=== PATIENT | female | born 1975 | race African-American/Black ===

== ENCOUNTER 2019-02-15 04:54 | Emergency (ER) | payer SELFPAY ==
[~2019-02-15] VITALS: Ht 165.1 cm; Wt 69.9 kg
--- NOTE | 2019-02-15 05:39 | PHYS DOC ---
Past Medical History Past Medical History: Bronchitis, Hypertension (SUZANNE SHI MD) Past Surgical History: (SUZANNE SHI MD) Alcohol Use: Occasionally Drug Use: None (SUZANNE SHI MD) Adult General Chief Complaint Chief Complaint: ALTERED MENTAL STATUS HPI HPI 43-year-old female presents to the emergency department via EMS with altered mental status. Patient states she's been drinking wine denies drugs however has some cigarettes which appears to be marijuana with some sort of contaminant associated with it. She denies drug intake. Has a history of hypertension. Patient denies chest pain, SOB, nausea, vomiting, headache or visual changes. Nothing makes her symptoms worse, nothing makes her symptoms better. (SUZANNE SHI MD) Review of Systems Review of Systems Constitutional: Denies fever or chills [] Respiratory: Denies cough or shortness of breath [] Cardiovascular: No additional information not addressed in HPI [] GI: Denies abdominal pain, nausea, vomiting, bloody stools or diarrhea [] : Denies dysuria or hematuria [] Musculoskeletal: Denies back pain or joint pain [] Neurologic: Denies headache, focal weakness or sensory changes [] All other systems were reviewed and found to be within normal limits, except as documented in this note. (SUZANNE SHI MD) Current Medications Current Medications Current Medications Medications (Trade) Dose Ordered Sig/Haylie Start Time Stop Time Status Last Admin Dose Admin Hydralazine HCl (Apresoline Inj) 10 mg 1X ONCE 02/15/19 06:00 02/15/19 06:01 DC 02/15/19 06:03 10 MG (ROHIT BUTT DO) Allergies Allergies Allergies Coded Allergies Type Severity Reaction Last Updated Verified No Known Drug Allergies 10/27/13 No (ROHIT BUTT DO) Physical Exam Physical Exam Constitutional: Well developed, well nourished, no acute distress, non-toxic appearance. [] HENT: Normocephalic, atraumatic, bilateral external ears normal, oropharynx moist, no oral exudates, nose normal. [] Eyes: PERRLA, EOMI, conjunctiva normal, no discharge. [] Neck: Normal range of motion, no tenderness, supple, no stridor. [] Cardiovascular:Heart rate regular rhythm, no murmur [] Lungs & Thorax: Bilateral breath sounds clear to auscultation [] Abdomen: Bowel sounds normal, soft, no tenderness, no masses, no pulsatile masses. [] Skin: Warm, dry, no erythema, no rash. [] Back: No tenderness, no CVA tenderness. [] Extremities: No tenderness, no cyanosis, no clubbing, ROM intact, no edema. [] Neurologic: Alert and oriented X 3, normal motor function, normal sensory function, no focal deficits noted. [] Psychologic: Affect normal, judgement normal, mood normal. [] (SUZANNE SHI MD) Physical Exam Constitutional: Well developed, well nourished, no acute distress, somnolent but awakes to voice HENT: Normocephalic, atraumatic, oropharynx moist Eyes: Conjunctiva normal, no discharge, nystagmus noted Neck: Normal range of motion, no tenderness, supple Cardiovascular: Heart rate normal, regular rhythm Lungs & Thorax: Bilateral breath sounds clear to auscultation, no wheezing Skin: Warm, dry, no erythema, no rash Neurologic: Alert and oriented X 3, normal motor function, normal sensory function, no focal deficits noted Psychologic: Affect is sleepy,denies suicidal ideation (ROHIT BUTT DO) Current Patient Data Vital Signs Vital Signs Date Time Temp Pulse Resp B/P (MAP) Pulse Ox O2 Delivery O2 Flow Rate FiO2 02/15/19 08:43 82 20 95 02/15/19 06:03 211/147 02/15/19 04:55 97.8 Room Air 97.8 (ROHIT BUTT DO) Lab Values Laboratory Tests Test 02/15/19 05:25 02/15/19 05:26 02/15/19 05:34 Urine Collection Type Unknown Urine Color Yellow Urine Clarity Clear Urine pH 5.5 Urine Specific [place] <=1.005 Urine Protein 30 mg/dL (NEG-TRACE) Urine Glucose (UA) Negative mg/dL (NEG) Urine Ketones (Stick) Negative mg/dL (NEG) Urine Blood Large (NEG) Urine Nitrite Negative (NEG) Urine Bilirubin Negative (NEG) Urine Urobilinogen Dipstick 0.2 mg/dL (0.2 mg/dL) Urine Leukocyte Esterase Trace (NEG) Urine RBC Tntc /HPF (0-2) Urine WBC 1-4 /HPF (0-4) Urine Squamous Epithelial Cells Few /LPF Urine Bacteria 0 /HPF (0-FEW) Urine Opiates Screen Neg (NEG) Urine Methadone Screen Neg (NEG) Urine Barbiturates Neg (NEG) Urine Phencyclidine Screen Pos (NEG) Urine Amphetamine/Methamphetamine Neg (NEG) Urine Benzodiazepines Screen Neg (NEG) Urine Cocaine Screen Neg (NEG) Urine Cannabinoids Screen Neg (NEG) Urine Ethyl Alcohol Pos (NEG) White Blood Count 11.6 x10^3/uL (4.0-11.0) H Red Blood Count 4.45 x10^6/uL (3.50-5.40) Hemoglobin 13.0 g/dL (12.0-15.5) Hematocrit 39.1 % (36.0-47.0) Mean Corpuscular Volume 88 fL (79-100) Mean Corpuscular Hemoglobin 29 pg (25-35) Mean Corpuscular Hemoglobin Concent 33 g/dL (31-37) Red Cell Distribution Width 17.0 % (11.5-14.5) H Platelet Count 282 x10^3/uL (140-400) Neutrophils (%) (Auto) 60 % (31-73) Lymphocytes (%) (Auto) 30 % (24-48) Monocytes (%) (Auto) 7 % (0-9) Eosinophils (%) (Auto) 3 % (0-3) Basophils (%) (Auto) 1 % (0-3) Neutrophils # (Auto) 6.9 x10^3/uL (1.8-7.7) Lymphocytes # (Auto) 3.5 x10^3/uL (1.0-4.8) Monocytes # (Auto) 0.8 x10^3/uL (0.0-1.1) Eosinophils # (Auto) 0.3 x10^3/uL (0.0-0.7) Basophils # (Auto) 0.1 x10^3/uL (0.0-0.2) Sodium Level 141 mmol/L (136-145) Potassium Level 3.9 mmol/L (3.5-5.1) Chloride Level 103 mmol/L (98-107) Carbon Dioxide Level 23 mmol/L (21-32) Anion Gap 15 (6-14) H Blood Urea Nitrogen 14 mg/dL (7-20) Creatinine 1.2 mg/dL (0.6-1.0) H Estimated GFR (Cockcroft-Gault) 59.6 BUN/Creatinine Ratio 12 (6-20) Glucose Level 84 mg/dL (70-99) Calcium Level 9.0 mg/dL (8.5-10.1) Magnesium Level 1.8 mg/dL (1.8-2.4) Total Bilirubin 0.2 mg/dL (0.2-1.0) Aspartate Amino Transferase (AST) 15 U/L (15-37) Alanine Aminotransferase (ALT) 12 U/L (14-59) L Alkaline Phosphatase 61 U/L (46-116) Creatine Kinase 127 U/L (26-192) Total Protein 9.5 g/dL (6.4-8.2) H Albumin 4.1 g/dL (3.4-5.0) Albumin/Globulin Ratio 0.8 (1.0-1.7) L Salicylates Level 4.0 mg/dL (2.8-20.0) Salicylate Last Dose Date Unknown Salicylate Last Dose Time Unknown Acetaminophen Level < 2.0 mcg/ml (10-30) L Acetaminophen Last Dose Date Unknown Acetaminophen Last Dose Time Unknown POC Urine HCG, Qualitative Hcg negative (Negative) Laboratory Tests 02/15/19 05:26 Laboratory Tests 02/15/19 05:26 (ROHIT BUTT DO) Lab Values Laboratory Tests Test 02/15/19 05:34 POC Urine HCG, Qualitative Hcg negative (Negative) (SUZANNE SHI MD) EKG EKG [] (SUZANNE SHI MD) Radiology/Procedures Radiology/Procedures [] (SUZANNE SHI MD) Radiology/Procedures PROCEDURE: CT HEAD WO CONTRAST STUDY: CT head without contrast INDICATION: Altered mental status. COMPARISON: None. TECHNIQUE: Axial CT imaging through the head without the use of intravenous contrast. Sagittal and coronal reformats were obtained. One or more of the following individualized dose reduction techniques were utilized for this examination: 1. Automated exposure control 2. Adjustment of the mA and/or kV according to patient size 3. Use of iterative reconstruction technique. FINDINGS: No acute intracranial hemorrhage. Gibson-white matter differentiation is maintained. No mass effect, midline shift or hydrocephalus. Intact calvarium. Unremarkable soft tissues. IMPRESSION: No acute intracranial abnormality seen by CT. Electronically signed by: CONCHA ESCOBEDO MD (02/15/2019 6:23 AM) [facility] (ROHIT BUTT DO) Course & Med Decision Making Course & Med Decision Making Pertinent Labs and Imaging studies reviewed. (See chart for details) []43-year-old female presents to the emergency department via EMS with altered mental status. Patient states she's been drinking wine denies drugs however has some cigarettes which appears to be marijuana with some sort of contaminant associated with it. She denies drug intake. Has a history of hypertension. Patient denies chest pain, SOB, nausea, vomiting, headache or visual changes. Nothing makes her symptoms worse, nothing makes her symptoms better. Labs/Imaging pending Hydralazine 10mg IV x 1 for blood pressure control Care transitioned to DR. BUTT at 0600, discussed current findings and presentation. DR BUTT to assume care and responsible for disposition (SUZANNE SHI MD) Course & Med Decision Making 0600- Sign out received from Dr. Shi for patient with altered mental status with positive UDS for PCP and ETOH. Patient currently sleeping. Patient seen and evaluated by myself. Patient subsequently clinically sober. Patient stable for discharge with o utpatient follow-up with PCP. Discussed findings and plan with patient, who acknowledges understanding and agreement. (ROHIT BUTT DO) Dragon Disclaimer Dragon Disclaimer This electronic medical record was generated, in whole or in part, using a voice recognition dictation system. (SUZANNE SHI MD) Departure Departure Impression: Primary Impression: Altered mental status Additional Impressions: Alcohol intoxication PCP abuse Disposition: HOME, SELF-CARE Condition: STABLE Referrals: JORGE EDWARD MD (PCP) Patient Instructions: Alcohol Intoxication, [id number], Alcohol and Drug Addiction, Finding Treatment, Drug Abuse, FAQs Problem Qualifiers Primary Impression: Altered mental status Altered mental status type: unspecified Qualified Codes: R41.82 - Altered mental status, unspecified Additional Impressions: Alcohol intoxication Complication of substance-induced condition: with unspecified complication Qualified Codes: F10.929 - Alcohol use, unspecified with intoxication, unspecified SUZANNE SHI MD Feb 15, 2019 05:38 ROHIT BUTT DO Feb 15, 2019 07:27
[2019-02-15 05:54] LABS: CREATININE 1.2 mg/dL (0.6-1.0); GFR 59.6; POTASSIUM 3.9 mmol/L (3.5-5.1)
[2019-02-15 06:01] LABS: BILIRUBIN,URINE NEGATIVE (NEG); CLARITY,URINE CLEAR; COLOR,URINE YELLOW; NITRITE,URINE NEGATIVE (NEG); PH,URINE 5.5; PROTEIN,URINE 30 mg/dL (NEG-TRACE); UROBILINOGEN,URINE 0.2 mg/dL (0.2 mg/dL)
[2019-02-15 06:01] LABS: ALBUMIN 4.1 g/dL (3.4-5.0); ALBUMIN/GLOBULIN RATIO 0.8 (1.0-1.7); MAGNESIUM 1.8 mg/dL (1.8-2.4); TOTAL BILIRUBIN 0.2 mg/dL (0.2-1.0); TOTAL PROTEIN 9.5 g/dL (6.4-8.2)
[2019-02-15] MEDS: hydrALAZINE 20 MG/ML VIAL. IVP ONE (06:03)
[2019-02-15 06:09] LABS: BASO # 0.1 x10^3/uL (0.0-0.2); BASO % 1 % (0-3); EOS # 0.3 x10^3/uL (0.0-0.7); EOS % 3 % (0-3); HEMATOCRIT 39.1 % (36.0-47.0); LYMPH # 3.5 x10^3/uL (1.0-4.8); LYMPH % 30 % (24-48); MEAN CORPUSCULAR HEMOGLOBIN 29 pg (25-35); MEAN CORPUSCULAR HGB CONC 33 g/dL (31-37); MEAN CORPUSCULAR VOLUME 88 fL (79-100); MONO # 0.8 x10^3/uL (0.0-1.1); MONO % 7 % (0-9); NEUT # 6.9 x10^3/uL (1.8-7.7); NEUT % 60 % (31-73); PLATELET COUNT 282 x10^3/uL (140-400); RED BLOOD COUNT 4.45 x10^6/uL (3.50-5.40); WHITE BLOOD COUNT 11.6 x10^3/uL (4.0-11.0)
[2019-02-15 06:10] LABS: BARBITURATES NEG (NEG); BENZODIAZEPINES NEG (NEG); CANNABINOIDS NEG (NEG); COCAINE NEG (NEG); METHADONE NEG (NEG); OPIATES NEG (NEG); PHENCYCLIDINE POS (NEG)
[2019-02-15 06:16] LABS: AMPHETAMINE/METHAMPHETAMINE NEG (NEG)
[2019-02-15 06:22] LABS: ACETAMIN < 2.0 mcg/ml (10-30)
--- NOTE | 2019-02-15 06:26 | RAD ---
STUDY: CT head without contrast INDICATION: Altered mental status. COMPARISON: None. TECHNIQUE: Axial CT imaging through the head without the use of intravenous contrast. Sagittal and coronal reformats were obtained. One or more of the following individualized dose reduction techniques were utilized for this examination: 1. Automated exposure control 2. Adjustment of the mA and/or kV according to patient size 3. Use of iterative reconstruction technique. FINDINGS: No acute intracranial hemorrhage. Gibson-white matter differentiation is maintained. No mass effect, midline shift or hydrocephalus. Intact calvarium. Unremarkable soft tissues. IMPRESSION: No acute intracranial abnormality seen by CT. Electronically signed by: CONCHA ESCOBEDO MD (02/15/2019 6:23 AM) [facility]
[2019-02-15 06:36] LABS: BACTERIA,URINE 0 /HPF (0-FEW); RBC,URINE TNTC /HPF (0-2); SQUAMOUS EPITHELIAL CELL,UR FEW /LPF
[2019-02-15 08:43] VITALS: BP 127/94
== END 2019-02-15 09:00 | disposition home or self-care (01) ==
LOC: ER 04:54
DX: R41.82 Altered mental status, unspecified (principal); F10.129 Alcohol abuse with intoxication, unspecified; F12.90 Cannabis use, unspecified, uncomplicated; F16.10 Hallucinogen abuse, uncomplicated; I10 Essential (primary) hypertension; Z98.890 Other specified postprocedural states
CPT/HCPCS: 36415; 70450; 80053; 80307; 80329; 81001; 81025; 82550; 83735; 85025; 87086; 96374; 99285; J0360; G0480

== ENCOUNTER → 2019-06-22 | Emergency (ER) | payer SELFPAY ==
[~2019-06-22] VITALS: Ht 160 cm; Wt 83.0 kg
[~2019-06-22] MED LIST: ACETAMINOPHEN/CODEINE 300/30MG TABLET. PO ONE; CLIN300C8 PO; CLINDAMYCIN HCL 150 MG CAPSULE. PO ONE; HYDR-3164 PO; cloNIDine HCL 0.1 MG TABLET PO ONE; hydrALAZINE 20 MG/ML VIAL. IVP ONE
--- NOTE | 2019-06-22 02:21 | PHYS DOC ---
Past Medical History Past Medical History: Bronchitis, Hypertension Past Surgical History: Smoking Status: Current Every Day Smoker Alcohol Use: Occasionally Drug Use: Marijuana, Phencyclidine General Adult EDM: Chief Complaint: DENTAL PROBLEM HPI: HPI: Patient is a 43 year old female who presents with complaint of left upper dental pain via EMS. EMS reports patient's blood pressure significantly elevated at 211/134. Patient does report to have facial pain but no headache associated with blood pressure. Patient states that she has had some swelling that has developed throughout the last 24 hours to her left upper jaw. She reports dental pain that is moderate. Patient states that she has been out of her blood pressure medicine for over a year and is not sure what it was.. [] Review of Systems: Review of Systems: Constitutional: Denies fever or chills. [] HENT: Positive left upper dental pain. [] Respiratory: Denies cough or shortness of breath. [] Cardiovascular: Denies chest pain or edema. [] Integument: Denies rash. [] Neurologic: Denies headache, focal weakness or sensory changes. [] Heart Score: Risk Factors: Risk Factors: DM, Current or recent (<one month) smoker, HTN, HLP, family history of CAD, obesity. Risk Scores: Score 0 - 3: 2.5% MACE over next 6 weeks - Discharge Home Score 4 - 6: 20.3% MACE over next 6 weeks - Admit for Clinical Observation Score 7 - 10: 72.7% MACE over next 6 weeks - Early Invasive Strategies Current Medications: Current Medications Medications (Trade) Dose Ordered Sig/Haylie Start Time Stop Time Status Last Admin Dose Admin Acetaminophen/ Codeine Phosphate (Tylenol #3) 1 tab 1X ONCE 06/22/19 02:00 06/22/19 02:01 DC 06/22/19 02:07 1 TAB Clindamycin HCl (Cleocin) 300 mg 1X ONCE 06/22/19 02:00 06/22/19 02:01 DC 06/22/19 02:07 300 MG Clonidine HCl (Catapres) 0.2 mg 1X ONCE 06/22/19 02:00 06/22/19 02:01 DC 06/22/19 02:07 0.2 MG Allergies: Allergies: Allergies Coded Allergies Type Severity Reaction Last Updated Verified No Known Drug Allergies 10/27/13 No Physical Exam: PE: Constitutional: Well developed, well nourished, no acute distress, non-toxic appearance. [] HENT: Normocephalic, atraumatic, with swelling in the left maxillary region. Dental examination demonstrates significant caries, primarily to the premolar and first molar in the left maxillary. [] Neck: Normal range of motion, no tenderness, supple, no stridor. [] Cardiovascular:Heart rate regular rhythm, no murmur [] Lungs & Thorax: Bilateral breath sounds clear to auscultation [] Neurologic: Alert and oriented X 3, no focal deficits noted. [] Current Patient Data: Vital Signs: Vital Signs Date Time Temp Pulse Resp B/P (MAP) Pulse Ox O2 Delivery O2 Flow Rate FiO2 06/22/19 02:07 Room Air 06/22/19 02:07 76 208/123 06/22/19 00:39 97.7 18 98 97.7 EKG: EKG: [] Radiology/Procedures: Radiology/Procedures: [] Course & Med Decision Making: Course & Med Decision Making Pertinent Labs and Imaging studies reviewed. (See chart for details) [] Dragon Disclaimer: Dragon Disclaimer: This electronic medical record was generated, in whole or in part, using a voice recognition dictation system. Departure Departure Impression: Primary Impression: Pain due to dental caries Additional Impression: Essential hypertension Disposition: 01 HOME, SELF-CARE Condition: STABLE Referrals: JORGE EDWARD MD (PCP) Patient Instructions: Dental Abscess, Dental Caries, Dental Pain, Hypertension Scripts Hydrocodone/Apap 5-325 (NORCO 5-325 TABLET) 1 Each Tablet 1-2 EACH PO PRN Q6HRS PRN for PAIN, #15 as needed for pain Prov: ELYSE REYNA Jr. DO 06/22/19 Clindamycin Hcl (CLINDAMYCIN HCL) 300 Mg Capsule 1 CAP PO QID, #40 CAP Prov: ELYSE REYNA Jr. DO 06/22/19 ELYSE REYNA Jr. DO June 22, 2019 02:21
[2019-06-22 03:23] VITALS: BP 156/104
== END | disposition home or self-care (01) ==
LOC: ER 00:28
DX: K02.9 Dental caries, unspecified (principal); I10 Essential (primary) hypertension; R51 Headache; R68.84 Jaw pain; F17.200 Nicotine dependence, unspecified, uncomplicated
CPT/HCPCS: 96374; 99284; J0360

== ENCOUNTER 2020-02-06 22:59 | Emergency (ER) | payer MEDICAID ==
[~2020-02-06] VITALS: Ht 160 cm; Wt 82.2 kg
[~2020-02-06 22:59] MED LIST changes: -ACETAMINOPHEN/CODEINE 300/30MG TABLET. PO ONE; -CLIN300C8 PO; +CLIN300C9 PO; -CLINDAMYCIN HCL 150 MG CAPSULE. PO ONE; -cloNIDine HCL 0.1 MG TABLET PO ONE; -hydrALAZINE 20 MG/ML VIAL. IVP ONE
[2020-02-06] MEDS ORDERED: FLUORESCEIN OPHTH TEST STRIP. OS ONE (23:30)
[2020-02-06] MEDS ORDERED: TETRACAINE 0.5% OPHTH SOLUTION 4ML BOTTLE. OS ONE (23:30)
[2020-02-06] MEDS ORDERED: GENT3.5O9 OU (23:37)
[2020-02-06] MEDS ORDERED: TOBR5DRO6 EACHEYE (23:37)
[2020-02-06] MEDS ORDERED: AMLO5TAB4 PO (23:37)
[2020-02-06] MEDS ORDERED: HYDR-3164 PO (23:38)
--- NOTE | 2020-02-06 23:38 | PHYS DOC ---
Past Medical History Past Medical History: Bronchitis, Hypertension Past Surgical History: Smoking Status: Current Every Day Smoker Alcohol Use: Occasionally Drug Use: Marijuana, Phencyclidine General Adult EDM: Chief Complaint: EYE PROBLEMS HPI: HPI: Patient is a 44 year old female presented to ER for evaluation of bilateral eye pain and irritation. Patient states she ran out of her contact lens solution, she put her contact lens into a solution of eyedrop and water. When she applied contact lens into her eyes today, she started having burning sensation. Patient tried to remove her contact lenses and was able to take the one on the right side right away but the left one it took her a long time to get it out. Afterward she started having pain in her eyes bilaterally there is very sensitive to light. So she came here for evaluation. Patient also has a history of hypertension, she had not been on any blood pressure medications for a year and a half. She says she was normally on 3 different blood pressure medication but she forgot the name. Patient complained of bilateral eye pain and blurry vision. Patient denies any chest pain, no abdominal pain, no nausea vomiting, no trouble breathing, no cough. Review of Systems: Review of Systems: Constitutional: Denies fever or chills. [] Eyes: Positive for eye pain and blurred vision HENT: Denies nasal congestion or sore throat. [] Respiratory: Denies cough or shortness of breath. [] Cardiovascular: Denies chest pain or edema. [] GI: Denies abdominal pain, nausea, vomiting, bloody stools or diarrhea. [] : Denies dysuria. [] Musculoskeletal: Denies back pain or joint pain. [] Integument: Denies rash. [] Neurologic: Denies headache, focal weakness or sensory changes. [] Endocrine: Denies polyuria or polydipsia. [] Lymphatic: Denies swollen glands. [] Psychiatric: Denies depression or anxiety. [] Heart Score: Risk Factors: Risk Factors: DM, Current or recent (<one month) smoker, HTN, HLP, family histo ry of CAD, obesity. Risk Scores: Score 0 - 3: 2.5% MACE over next 6 weeks - Discharge Home Score 4 - 6: 20.3% MACE over next 6 weeks - Admit for Clinical Observation Score 7 - 10: 72.7% MACE over next 6 weeks - Early Invasive Strategies Current Medications: Current Medications Medications (Trade) Dose Ordered Sig/Haylie Start Time Stop Time Status Last Admin Dose Admin Acetaminophen/ Hydrocodone Bitart (Lortab 5/325) 1 tab 1X ONCE 02/06/20 23:30 02/06/20 23:31 UNV Clonidine HCl (Catapres) 0.1 mg 1X ONCE 02/06/20 23:30 02/06/20 23:31 UNV Fluorescein Sodium (Ful-Domitila) 1 strip 1X ONCE 02/06/20 23:30 02/06/20 23:31 Tetracaine HCl (Tetracaine) 2 drop 1X ONCE 02/06/20 23:30 02/06/20 23:31 Allergies: Allergies: Allergies Coded Allergies Type Severity Reaction Last Updated Verified No Known Drug Allergies 10/27/13 No Physical Exam: PE: Constitutional: Well developed, well nourished, moderate acute distress due to eyes pain, non-toxic appearance. [] HENT: Normocephalic, atraumatic, bilateral external ears normal, oropharynx moist, no oral exudates, nose normal. [] Eyes: PERRLA, EOMI, bilateral conjunctival injection, DYE uptake on left eye. No hyphema. No contact lens in both eyes. Neck: Normal range of motion, no tenderness, supple, no stridor. [] Cardiovascular:Heart rate regular rhythm, no murmur [] Lungs & Thorax: Bilateral breath sounds clear to auscultation [] Abdomen: Bowel sounds normal, soft, no tenderness, no masses, no pulsatile masses. [] Skin: Warm, dry, no erythema, no rash. [] Back: No tenderness, no CVA tenderness. [] Extremities: No tenderness, no cyanosis, no clubbing, ROM intact, no edema. [] Neurologic: Alert and oriented X 3, normal motor function, normal sensory function, no focal deficits noted. [] Psychologic: Affect normal, judgement normal, mood normal. [] EKG: EKG: [] Radiology/Procedures: Radiology/Procedures: [] Course & Med Decision Making: Course & Med Decision Making Pertinent Labs and Imaging studies reviewed. (See chart for details) Patient is a 44-year-old female who presented to ER due to bilateral eye pain because of contact lens usage. Patient was found to have corneal abrasion. Patient was advised not to use contact lenses for a month. Patient was found to be hypertensive, patient will be discharged home with antihypertensive medication. Patient will be given eyedrops and eye ointment antibiotic to prevent infection. Patient will need to follow up with an eye doctor this week for reevaluation. Patient is amenable to plan of care. Stevie Disclaimer: Dragon Disclaimer: This electronic medical record was generated, in whole or in part, using a voice recognition dictation system. Departure Departure Impression: Primary Impression: Cornea abrasion Additional Impression: Hypertension Disposition: 01 DC HOME SELF CARE/HOMELESS Condition: IMPROVED Referrals: JORGE EDWARD MD (PCP) Usha YUSUF MD please follow up with this eye doctor this week for reevaluation. Patient Instructions: Eye - Corneal Abrasion, Hypertension Additional Instructions: Thank you for visiting our Emergency Department. We appreciate you trusting us with your care. If any additional problems come up don't hesitate to return to visit us. Please follow up with your primary care provider so they can plan additional care if needed and know about the problem that you had. If symptoms worsen come back to the Emergency Department. Any concerning symptoms that start such as chest pain, shortness of air, weakness or numbness on one side of the body, running high fevers or any other concerning symptoms return to the ER. Scripts Hydrocodone/Apap 5-325 (NORCO 5-325 TABLET) 1 Each Tablet 1 TAB PO PRN Q6HRS PRN for PAIN, #10 TAB 0 Refills Prov: ARVIN TREADWELL DO 02/06/20 Amlodipine Besylate (NORVASC) 5 Mg Tablet 1 TAB PO DAILY, #30 TAB 5 Refills Prov: ARVIN TREADWELL DO 02/06/20 Gentamicin Sulfate (GENTAMICIN SULFATE 0.3% OPHTH OINT) 3.5 Gm Oint...g. 1 MOUSTAPHA OU QID for 5 Days, #1 TUBE Prov: ARVIN TREADWELL DO 02/06/20 Tobramycin (TOBRAMYCIN) 5 Ml Drops 2 DROP EACHEYE QID for 7 Days, #10 ML 0 Refills Prov: ARVIN TREADWELL DO 02/06/20 ARVIN TREADWELL DO Feb 06, 2020 23:38
[2020-02-07] VITALS: BP 206/108
[2020-02-07] MEDS ORDERED: cloNIDine HCL 0.1 MG TABLET PO ONE
[2020-02-07] MEDS ORDERED: HYDROcodone/APAP 5/325MG 1 TAB TABLET PO ONE
== END 2020-02-07 | disposition home or self-care (01) ==
LOC: ER 22:59
DX: S05.02XA Injury of conjunctiva and corneal abrasion without foreign body, left eye, initial encounter (principal); I10 Essential (primary) hypertension; F17.200 Nicotine dependence, unspecified, uncomplicated; X58.XXXA Exposure to other specified factors, initial encounter; Y93.89 Activity, other specified; Y92.89 Other specified places as the place of occurrence of the external cause; Y99.8 Other external cause status
CPT/HCPCS: 99284

== ENCOUNTER 2020-08-03 13:55 | Emergency (ER) | payer MEDICAID ==
[~2020-08-03] VITALS: Ht 160 cm; Wt 80.0 kg
[~2020-08-03 13:55] MED LIST changes: +AMLO5TAB4 PO; +GENT3.5O9 OU; +TOBR5DRO6 EACHEYE
--- NOTE | 2020-08-03 14:58 | PHYS DOC ---
Past Medical History Past Medical History: Asthma, Bronchitis, Hypertension Past Surgical History: No Surgical History, Smoking Status: Current Every Day Smoker Additional Information: 0.5 PPD Alcohol Use: Occasionally Drug Use: Marijuana, Phencyclidine General Adult EDM: Chief Complaint: LOWER EXT PAIN HPI: HPI: Patient is a 44 year old female who presents with states this morning she awoke and she is having sharp shooting pain in the dorsal and lateral knee on the right side. She denies injury. Rates her pain a 9 out of 10. Has medical history is asthma, hypertension smoking. Patient did not take any pain medication for her pain. Review of Systems: Review of Systems: Constitutional: Denies fever or chills. [] Eyes: Denies change in visual acuity. [] HENT: Denies nasal congestion or sore throat. [] Respiratory: Denies cough or shortness of breath. [] Cardiovascular: Denies chest pain or edema. [] GI: Denies abdominal pain, nausea, vomiting, bloody stools or diarrhea. [] : Denies dysuria. [] Musculoskeletal: Denies back pain or + right knee joint pain. [] Integument: Denies rash. [] Neurologic: Denies headache, focal weakness or sensory changes. [] Endocrine: Denies polyuria or polydipsia. [] Lymphatic: Denies swollen glands. [] Psychiatric: Denies depression or anxiety. [] Heart Score: C/O Chest Pain: No Risk Factors: Risk Factors: DM, Current or recent (<one month) smoker, HTN, HLP, family hist ory of CAD, obesity. Risk Scores: Score 0 - 3: 2.5% MACE over next 6 weeks - Discharge Home Score 4 - 6: 20.3% MACE over next 6 weeks - Admit for Clinical Observation Score 7 - 10: 72.7% MACE over next 6 weeks - Early Invasive Strategies Allergies: Allergies: Allergies Coded Allergies Type Severity Reaction Last Updated Verified No Known Drug Allergies 10/27/13 No Physical Exam: PE: Constitutional: Well developed, well nourished, no acute distress, non-toxic appearance. [] HENT: Normocephalic, atraumatic, bilateral external ears normal, oropharynx moist, no oral exudates, nose normal. [] Eyes: PERRLA, EOMI, conjunctiva normal, no discharge. [] Neck: Normal range of motion, no tenderness, supple, no stridor. [] Cardiovascular:Heart rate regular rhythm, no murmur [] Lungs & Thorax: Bilateral breath sounds clear to auscultation [] Abdomen: Bowel sounds normal, soft, no tenderness, no masses, no pulsatile masses. [] Skin: Warm, dry, no erythema, no rash. [] Back: No tenderness, no CVA tenderness. [] Extremities: Right dorsal knee tenderness, no cyanosis, no clubbing, ROM intact, no edema. [] Neurologic: Alert and oriented X 3, normal motor function, normal sensory function, no focal deficits noted. [] Psychologic: Affect normal, judgement normal, mood normal. [] Current Patient Data: Vital Signs: Vital Signs Date Time Temp Pulse Resp B/P (MAP) Pulse Ox O2 Delivery O2 Flow Rate FiO2 08/03/20 14:30 98.4 89 16 170/98 (122) 97 Room Air 98.4 EKG: EKG: [] Radiology/Procedures: Radiology/Procedures: [] Impression: [facility] [address] [place] [address] IMAGING REPORT Signed PATIENT: CASSIA CAMP ACCOUNT: [id number] : 1975 LOCATION: ER AGE: 44 SEX: F EXAM STATUS: REG ER ORD. PHYSICIAN: NEL GILLIAM APRN REASON: PAIN UPON WAKING THIS AM. NO INJURY PROCEDURE: KNEE RIGHT 4V 4 view right knee dated 08/03/2020 No comparison available. CLINICAL INDICATION: Pain. FINDINGS: 4 views right knee show normal bony alignment. No displaced fracture. No periostitis or bone destruction. No acute osseous or articular abnormality. No apparent joint effusion or loose body. IMPRESSION: No acute radiographic abnormality. Electronically signed by: Zeke Hammer MD (08/03/2020 3:15 PM) [id number] DICTATED and SIGNED BY: ZEKE HAMMER MD DATE: 08/03/20 [id number] 0 Course & Med Decision Making: Course & Med Decision Making Pertinent Labs and Imaging studies reviewed. (See chart for details) See HPI. Alert and oriented x4. Ambulatory with steady gait but slightly limping on the right leg. Speaks in full full clear sentences. No joint redness, edema, deformity, abrasion, laceration. Tenderness to palpation to the dorsal knee. No focal weakness. Patient can bend the knee she states is painful. Upon walking the room patient is sitting in the bed smiling and texting on her cell phone. Skin pink warm and dry. Cap refill less than 2 seconds. Popliteal pulse present. No extremity swelling. [] Dragon Disclaimer: Dragon Disclaimer: This electronic medical record was generated, in whole or in part, using a voice recognition dictation system. Departure Departure Impression: Primary Impression: Knee pain, right Qualified Codes: M25.561 - Pain in right knee Disposition: HOME / SELF CARE / HOMELESS Condition: STABLE Referrals: JORGE EDWARD MD (PCP) JUDY ZAMBRANO MD Patient Instructions: Knee Pain Additional Instructions: Follow-up with primary care provider. I have also giving the number of an orthopedic doctor to follow-up with. Use ice or heat to help with your pain. Take naproxen to help with your pain. Rest the extremity. Scripts Naproxen (NAPROXEN) 500 Mg Tablet 1 TAB PO BID for pain for 30 Days, #60 TAB 0 Refills Prov: NEL GILLIAM APRN 08/03/20 NEL GLILIAM APRN Aug 03, 2020 14:58
--- NOTE | 2020-08-03 15:17 | RAD ---
4 view right knee dated 08/03/2020 No comparison available. CLINICAL INDICATION: Pain. FINDINGS: 4 views right knee show normal bony alignment. No displaced fracture. No periostitis or bone destruct ion. No acute osseous or articular abnormality. No apparent joint effusion or loose body. IMPRESSION: No acute radiographic abnormality. Electronically signed by: Zeke Hammer MD (08/03/2020 3:15 PM) [id number]
[2020-08-03] MEDS ORDERED: NAPR-514 PO (15:34)
[2020-08-03 15:46] VITALS: BP 137/87
== END 2020-08-03 15:46 | disposition home or self-care (01) ==
LOC: ER 13:55
DX: M25.561 Pain in right knee (principal); I10 Essential (primary) hypertension; J45.909 Unspecified asthma, uncomplicated; F17.200 Nicotine dependence, unspecified, uncomplicated
CPT/HCPCS: 73564; 99283

== ENCOUNTER 2021-06-05 12:03 | Emergency (ER) | payer MEDICAID ==
[~2021-06-05] VITALS: Ht 160 cm; Wt 85.4 kg
[~2021-06-05 12:03] MED LIST changes: +CLIN-94 PO; -CLIN300C9 PO; +NAPR-514 PO
[2021-06-05 12:20] VITALS: BP 115/83
[2021-06-05] MEDS ORDERED: AMLO-186 PO (12:39)
--- NOTE | 2021-06-05 12:39 | PHYS DOC ---
Past Medical History Past Medical History: Asthma, Bronchitis, Hypertension Past Surgical History: Smoking Status: Current Every Day Smoker Alcohol Use: Occasionally Drug Use: Marijuana, Phencyclidine General Adult EDM: Chief Complaint: HYPERTENSION HPI: HPI: Patient is a 45-year-old female who presents today with hypertension. Patient states that she took her last hypertensive medication on Wednesday, and she presents today because she feels like her blood pressure is elevated. Currently her blood pressure is 115/83, patient denies chest pain, shortness of breath, or headache. Patient states that she has been taking amlodipine 5 mg but has been taking multiple tablets of it a day, because she thinks her blood pressure is high. Patient does not have a primary care physician, and states that she got the prescription of amlodipine from the [facility], and she has not followed up with any clinic or primary care for further evaluation and management of her hypertension. Review of Systems: Review of Systems: Constitutional: Denies fever or chills. [] Eyes: Denies change in visual acuity. [] HENT: Denies nasal congestion or sore throat. [] Respiratory: Denies cough or shortness of breath. [] Cardiovascular: Hypertension denies chest pain or edema. [] GI: Denies abdominal pain, nausea, vomiting, bloody stools or diarrhea. [] : Denies dysuria. [] Musculoskeletal: Denies back pain or joint pain. [] Integument: Denies rash. [] Neurologic: Denies headache, focal weakness or sensory changes. [] Endocrine: Denies polyuria or polydipsia. [] Lymphatic: Denies swollen glands. [] Psychiatric: Denies depression or anxiety. [] Heart Score: C/O Chest Pain: No Risk Factors: Risk Factors: DM, Current or recent (<one month) smoker, HTN, HLP, family history of CAD, obesity. Risk Scores: Score 0 - 3: 2.5% MACE over next 6 weeks - Discharge Home Score 4 - 6: 20.3% MACE over next 6 weeks - Admit for Clinical Observation Score 7 - 10: 72.7% MACE over next 6 weeks - Early Invasive Strategies Allergies: Allergies: Allergies Coded Allergies Type Severity Reaction Last Updated Verified No Known Drug Allergies 10/27/13 No Physical Exam: PE: Constitutional: Well developed, well nourished, no acute distress, non-toxic appearance. [] HENT: Normocephalic, atraumatic, bilateral external ears normal, oropharynx moist, no oral exudates, nose normal. [] Eyes: PERRLA, EOMI, conjunctiva normal, no discharge. [] Neck: Normal range of motion, no tenderness, supple, no stridor. [] Cardiovascular:Heart rate regular rhythm, no murmur [] Lungs & Thorax: Bilateral breath sounds clear to auscultation [] Abdomen: Bowel sounds normal, soft, no tenderness, no masses, no pulsatile mass es. [] Skin: Warm, dry, no erythema, no rash. [] Back: No tenderness, no CVA tenderness. [] Extremities: No tenderness, no cyanosis, no clubbing, ROM intact, no edema. [] Neurologic: Alert and oriented X 3, normal motor function, normal sensory function, no focal deficits noted. [] Psychologic: Affect normal, judgement normal, mood normal. [] Current Patient Data: Vital Signs: Vital Signs Date Time Temp Pulse Resp B/P (MAP) Pulse Ox O2 Delivery O2 Flow Rate FiO2 06/05/21 12:20 97.8 103 18 115/83 (94) 97 Room Air 97.8 EKG: EKG: [] Radiology/Procedures: Radiology/Procedures: [] Course & Med Decision Making: Course & Med Decision Making Pertinent Labs and Imaging studies reviewed. (See chart for details) 1230 I did speak to patient at length regarding establishing primary care either with a clinic or a primary care physician for further evaluation and management of her hypertension, this is something that needs to be managed on an outpatient basis due to the follow-up that is needed for management of hype rtension. Patient will be given a 7-day course of amlodipine 5 mg to be taken on a daily basis, she is encouraged to follow-up with one of the listed clinics on her discharge sheet or one of the prime health care physician in the brochure that was given to her for further evaluation and management of her hypertension. I did inform her that she will need to follow-up with a clinic or her primary care for further evaluation and management of her anxiety, patient verbalized understanding this and agreeable to the plan of care. Stevie Disclaimer: Stevie Disclaimer: This electronic medical record was generated, in whole or in part, using a voice recognition dictation system. Departure Departure Impression: Primary Impression: Hypertension Qualified Codes: I10 - Essential (primary) hypertension Additional Impression: Medication refill Disposition: HOME / SELF CARE / HOMELESS Condition: STABLE Referrals: JORGE EDWARD MD (PCP) Patient Instructions: Anxiety and Panic Attacks, Hypertension Additional Instructions: Amlodipine 5 mg daily. Follow-up with your primary care physician or one of the listed clinics below for further evaluation and management of your hypertension and anxiety. Return to the emergency department for increased shortness of breath, chest pain, or headache, or strokelike symptoms. [facility] [address] [place] [address] [facility] [address] [place] [address] [facility] [address] [facility] [place] [address] [facility] [address] [place] [address] [facility] [address] [place] [address] [address] [place] [address] [facility] [address] [place] [address] [facility] [address] [place] [address] [facility] [address] [place] [address] [facility] [address] [place] [address] Scripts Amlodipine Besylate (AMLODIPINE BESYLATE) 5 Mg Tablet 5 MG PO DAILY, #14 TAB Prov: JAMES SANDERS JUNIOR ACCOUNT MANAGER 06/05/21 JAMES SANDERS JUNIOR ACCOUNT MANAGER Jun 05, 2021 12:39
== END 2021-06-05 12:51 | disposition home or self-care (01) ==
LOC: ER 12:03
DX: I10 Essential (primary) hypertension (principal); Z76.0 Encounter for issue of repeat prescription; J45.909 Unspecified asthma, uncomplicated; F17.200 Nicotine dependence, unspecified, uncomplicated
CPT/HCPCS: 99281